=== PATIENT | female | born 1965 | race Two or more races ===

== ENCOUNTER 2019-11-30 17:30 | Emergency (ER) | payer OTHER ==
[~2019-11-30] VITALS: Ht 160 cm; Wt 81.6 kg
[2019-11-30] MEDS ORDERED: HUMULIN N100 UNIT/2 (17:41)
[2019-11-30] MEDS ORDERED: ISOSORBIDE MONO60 MG (17:42)
[2019-11-30] MEDS ORDERED: HUMALOG100 UNIT/2 (17:42)
[2019-11-30] MEDS ORDERED: ZESTRIL5 MG (17:42)
[2019-11-30] MEDS ORDERED: CYMBALTA20 MG (17:43)
[2019-11-30] MEDS ORDERED: HORIZANT300 MG (17:43)
== END 2019-11-30 22:39 | disposition home or self-care (01) ==
LOC: ER 17:30
DX: J11.1 Influenza due to unidentified influenza virus with other respiratory manifestations (principal)

== ENCOUNTER 2022-07-08 07:37 | Outpatient (CLI) | payer OTHER ==
[~2022-07-08 07:37] MED LIST: CYMBALTA20 MG; HORIZANT300 MG; HUMALOG100 UNIT/2; HUMULIN N100 UNIT/2; ISOSORBIDE MONO60 MG; ZESTRIL5 MG
== END 2022-07-08 07:49 | disposition home or self-care (01) ==
LOC: RX STUDY 07:37
PROVIDERS: ATTEND Internal Medicine Gastroenterology
DX: M54.6 Pain in thoracic spine (principal); R13.12 Dysphagia, oropharyngeal phase

== ENCOUNTER 2023-12-02 21:59 | Emergency (ER) | payer OTHER ==
[~2023-12-02] VITALS: Ht 170.2 cm; Wt 92.1 kg
[2023-12-02] MEDS ORDERED: LEVO-T75 MCG PO (22:31)
[2023-12-02] MEDS ORDERED: SIMVASTATIN20 MG PO (22:32)
[2023-12-02] MEDS ORDERED: GLIPIZIDE5 MG PO (22:32)
[2023-12-03] MEDS ORDERED: DICLOFENAC SODI75 MG PO (02:11)
[2023-12-03] MEDS ORDERED: DUI500 PO (02:11)
[2023-12-03] MEDS ORDERED: NORFLEX100MG PO (02:11)
== END 2023-12-03 02:24 | disposition home or self-care (01) ==
LOC: ER 22:01
DX: S30.0XXA Contusion of lower back and pelvis, initial encounter (principal); S60.032A Contusion of left middle finger without damage to nail, initial encounter; W18.30XA Fall on same level, unspecified, initial encounter; Y93.89 Activity, other specified; Y92.018 Other place in single-family (private) house as the place of occurrence of the external cause; Y99.9 Unspecified external cause status; E11.9 Type 2 diabetes mellitus without complications; Z79.4 Long term (current) use of insulin; I10 Essential (primary) hypertension
CPT/HCPCS: 72100; 72131; 73140; 96372; 99284; J1885; J2360